=== PATIENT | female | born 1960 ===

== ENCOUNTER 2017-04-26 10:11 | Emergency (ER) | payer BC ==
[2017-04-26 10:23] VITALS: BP 142/90; PULSE 65; RESP 16; TEMP 96.8; O2SAT 99; BMI 27.1
[2017-04-26] MEDS ORDERED: Silver Nitrate Topical - Stick ONE (10:50)
--- NOTE | 2017-04-26 10:59 | ED PDOC ---
HPI: CCC, URI, Sore Throat Time Seen by Provider: 04/26/17 10:33 Chief Complaint (Nursing): ENT Problem Chief Complaint (Provider): Nose bleed History Per: Patient Additional Complaint(s): 57 yo female, PMH of HTN and High Cholesterol, presents to ED with complaints of intermittent nasal bleeding that started yesterday. denies trauma. Takes baby aspirin daily. no active bleeding at present time. Past Medical History Reviewed: Nursing Documentation, Vital Signs Vital Signs: Last Vital Signs Temp 96.8 F L 04/26/17 10:22 Pulse 65 04/26/17 10:22 Resp 16 04/26/17 10:22 BP 142/90 04/26/17 10:22 Pulse Ox 99 04/26/17 10:22 - Medical History PMH: Anemia, Arthritis, HTN, Hypercholesterolemia, Chronic Kidney Disease - Family History Family History: States: No Known Family Hx - Home Medications Home Medications: Ambulatory Orders Medication Instructions Recorded Atenolol [Tenormin] 50 mg PO DAILY 10/03/15 Ibuprofen [Motrin] 600 mg PO Q6 PRN #15 tab 10/27/16 Sodium Chloride Nasal [place] [[place] 1 ml NS BID #1 bottle 04/26/17 Nasal [place]] - Allergies Allergies/Adverse Reactions: Allergies Allergy/AdvReac Type Severity Reaction Status Date / Time No Known Allergies Allergy Verified 09/06/16 10:32 Review of Systems ROS Statement: Except As Marked, All Systems Reviewed And Found Negative ENT: Positive for: Other (nasal bleeding) Physical Exam - Reviewed Nursing Documentation Reviewed: Yes Vital Signs Reviewed: Yes - Physical Exam Appears: Positive for: Well, Non-toxic, No Acute Distress Head Exam: Positive for: ATRAUMATIC, NORMAL INSPECTION, NORMOCEPHALIC Skin: Positive for: Normal Color, Warm, DRY Eye Exam: Positive for: EOMI, Normal appearance, PERRL ENT: Positive for: Normal ENT Inspection, Other (no active bleeding at this time ) Neck: Positive for: Normal, Painless ROM Cardiovascular/Chest: Positive for: Regular Rate, Rhythm Respiratory: Positive for: CNT, Normal Breath Sounds Gastrointestinal/Abdominal: Positive for: Normal Exam, Bowel Sounds, Soft Back: Positive for: Normal Inspection Extremity: Positive for: Normal ROM Neurologic/Psych: Positive for: Alert, Oriented - ECG O2 Sat by Pulse Oximetry: 99 Medical Decision Making Medical Decision Making: Silver nitrate applied maneuvers to stop any future bleeding episodes discussed Disposition - Clinical Impression Clinical Impression: Epistaxis - Patient ED Disposition Is Patient to be Admitted: No - Disposition Disposition: Routine/Home Disposition Time: 11:18 Condition: STABLE - POA Present On Arrival: None
[2017-04-26] MEDS ORDERED: Silver Nitrate Topical - Stick TOP ONE (11:17)
[2017-04-26] MEDS ORDERED: Midazolam 2 MG/2 ML VIAL ONE (11:33)
== END 2017-04-26 11:50 | disposition home or self-care (01) ==
LOC: H.ER 10:11
DX: R04.0 Epistaxis (principal)
CPT/HCPCS: 99283; J2250